=== PATIENT | male | born 1955 | race Caucasian/White ===

== ENCOUNTER → 2016-02-13 | Outpatient (CLI) | payer BC ==
[~2016-02-13] MED LIST: CHOL2000 PO; LACT1CAP49 PO; LOPE2CAP PO; LORA1TAB54 PO; NAPR220C2 PO
[2016-02-13 11:55] LABS: BASOPHILS % 0.2 % (0.0-2.0); EOSINOPHILS # 0.3 10^3/ul (0.0-0.5); EOSINOPHILS % 3.7 % (0.0-7.0); HEMATOCRIT 47.5 % (42.0-52.0); HEMOGLOBIN 16.1 g/dl (14.0-18.0); LYMPHOCYTES % 10.7 % (15.0-51.0); MEAN CORPUSCULAR HEMOGLOBIN 31.7 pg (29.0-33.0); MEAN CORPUSCULAR HGB CONC 33.9 g/dl (32.0-37.0); MEAN CORPUSCULAR VOLUME 93.5 fl (82.0-101.0); MEAN PLATELET VOLUME 9.7 fl (7.4-10.4); MONOCYTE # 0.7 10^3/ul (0.3-0.9); MONOCYTES % 7.3 % (0.0-11.0); NEUTROPHIL # 7.2 10^3/ul (1.6-7.5); NEUTROPHILS % 78.1 % (39.0-77.0); PLATELET COUNT 111 10^3/UL (140-440); RED BLOOD COUNT 5.08 10^6/ul (4.70-6.10); RED CELL DISTRIBUTION WIDTH 14.2 % (11.5-14.5); UNCORRECTED WBC 9.2 10^3/ul (4.8-10.8); WHITE BLOOD COUNT 9.2 10^3/ul (4.8-10.8)
[2016-02-13 12:04] LABS: CONDITION 1
[2016-02-13 12:22] LABS: POTASSIUM 4.4 mmol/L (3.5-5.1)
[2016-02-13 12:25] LABS: ALBUMIN/GLOBULIN RATIO 1.53; BILIRUBIN,INDIRECT 0.9 mg/dl (0-1.1); BILIRUBIN,TOTAL 0.9 mg/dl (0.2-1.3); CREATININE 0.96 mg/dl (0.61-1.24); TOTAL PROTEIN 6.6 g/dl (6.1-8.1)
[2016-02-13 12:26] LABS: CALCIUM 8.8 mg/dl (8.4-10.2)
== END | disposition home or self-care (01) ==
LOC: OBT 11:22
PROVIDERS: ATTEND Specialist
DX: M06.9 Rheumatoid arthritis, unspecified (principal)
CPT/HCPCS: 80053; 85025; 85651; 86140

== ENCOUNTER 2016-03-11 06:30 | Day surgery (SDC) | payer BC ==
[~2016-03-11] VITALS: Ht 160 cm; Wt 68.9 kg
[2016-03-11 08:30] VITALS: Ht 160 cm; Wt 68.9 kg
[2016-03-11] MEDS ORDERED: ACTEMRA (08:36)
[2016-03-11 08:47] VITALS: BP 143/82; PULSE 74; RESP 18
[2016-03-11] MEDS ORDERED: PROPOFOL 20 ML ONE (08:59)
[2016-03-11 09:35] VITALS: BP 122/72; PULSE 54; RESP 21
--- NOTE | 2016-03-11 13:43 | GILP ---
DATE OF PROCEDURE: PROCEDURE PERFORMED: Colonoscopy with biopsy. INDICATION: A 61-year-old male undergoing this procedure for chronic diarrhea and colon cancer scre ening. The risks of the procedure, related and unrelated complications, anesthetic risks, alternati ves discussed. Informed consent was obtained. DESCRIPTION OF PROCEDURE: The patient was brought to the GI lab, sedated by Dr. Wylie. After obtaini ng sedation, digital examination done. Sphincter tone was poor. No mass was felt and the prostate was normal. Scope was passed with much ease into rectum, advanced through clean colon all the way i nto cecum and finally into terminal ileum. IC valve was a bit tight. Managed to pass all the way up to 3 feet, the rest of the terminal ileum was normal. Random biopsies obtained from the right colo n, transverse colon and left colon. Retroversion could not be done because of a poor sphincter tone and it was not holding any air. Scope was removed with good patient tolerance. IMPRESSION 1. Slightly poor sphincter tone. 2. Normal colon all the way up to the appendix. 3. Normal terminal ileum up to 3 feet. 4. Clarity and cleanliness was good. 5. Digital examination was normal except for a post-sphincter tone. PLAN: Review histopathology for collagenous or microscopic colitis. Patient will be placed on a bu lky diet for his diarrhea. If that does not work then will work him up further. Dictated By: JOE CHARLES/SADIE Conf#: [id number] DID#: [id number]
== END 2016-03-11 09:45 | disposition home or self-care (01) ==
LOC: GIL 06:30
PROVIDERS: ATTEND Internal Medicine Gastroenterology
DX: Z12.11 Encounter for screening for malignant neoplasm of colon (principal); M06.9 Rheumatoid arthritis, unspecified; R19.7 Diarrhea, unspecified; R00.1 Bradycardia, unspecified

== ENCOUNTER → 2016-04-16 | Outpatient (CLI) | payer BC ==
[~2016-04-16] MED LIST changes: +ACTEMRA
[2016-04-16 08:22] LABS: ADD SCAN DIFF NO
[2016-04-16 08:37] LABS: ALBUMIN 3.7 g/dl (3.3-4.9)
[2016-04-16 08:38] LABS: POTASSIUM 4.4 mmol/L (3.5-5.1)
[2016-04-16 08:40] LABS: ALBUMIN/GLOBULIN RATIO 1.42; BILIRUBIN,INDIRECT 0.3 mg/dl (0-1.1); BILIRUBIN,TOTAL 0.3 mg/dl (0.2-1.3); CREATININE 0.98 mg/dl (0.61-1.24); TOTAL PROTEIN 6.3 g/dl (6.1-8.1)
[2016-04-16 08:41] LABS: CALCIUM 8.9 mg/dl (8.4-10.2)
[2016-04-16 08:43] LABS: C-REACTIVE PROTEIN 0.6 mg/dl (0.0-0.9)
[2016-04-16 09:43] LABS: BASOPHILS % 0.6 % (0.0-2.0); EOSINOPHILS # 0.2 10^3/ul (0.0-0.5); EOSINOPHILS % 4.4 % (0.0-7.0); HEMOGLOBIN 15.2 g/dl (14.0-18.0); LYMPHOCYTES # 1.3 10^3/ul (0.8-2.9); LYMPHOCYTES % 26.5 % (15.0-51.0); MEAN CORPUSCULAR HEMOGLOBIN 31.3 pg (29.0-33.0); MEAN CORPUSCULAR VOLUME 94.8 fl (82.0-101.0); MEAN PLATELET VOLUME 12.2 fl (7.4-10.4); MONOCYTE # 0.5 10^3/ul (0.3-0.9); MONOCYTES % 10.2 % (0.0-11.0); NEUTROPHIL # 2.9 10^3/ul (1.6-7.5); NEUTROPHILS % 57.9 % (39.0-77.0); PLATELET COUNT 140 10^3/UL (140-415); RED BLOOD COUNT 4.85 10^6/ul (4.70-6.10); RED CELL DISTRIBUTION WIDTH 13.2 % (11.5-14.5)
== END | disposition home or self-care (01) ==
LOC: LAB 07:53
PROVIDERS: ATTEND Specialist
DX: M06.9 Rheumatoid arthritis, unspecified (principal)
CPT/HCPCS: 80053; 85025; 85651; 86140

== ENCOUNTER → 2016-04-22 | Outpatient (CLI) | payer BC | END | disposition home or self-care (01) | LOC: LAB 09:51 | PROVIDERS: ATTEND Internal Medicine Gastroenterology | DX: R19.7 Diarrhea, unspecified (principal) | CPT/HCPCS: 87177; 87205 ==

== ENCOUNTER → 2016-05-02 | Outpatient (CLI) | payer BC ==
[2016-05-02 19:32] LABS: ADD SCAN DIFF NO
[2016-05-02 19:38] LABS: BASOPHILS % 0.8 % (0.0-2.0); EOSINOPHILS # 0.2 10^3/ul (0.0-0.5); EOSINOPHILS % 4.1 % (0.0-7.0); HEMATOCRIT 47.3 % (42.0-52.0); HEMOGLOBIN 16.1 g/dl (14.0-18.0); LYMPHOCYTES # 1.4 10^3/ul (0.8-2.9); LYMPHOCYTES % 28.9 % (15.0-51.0); MEAN CORPUSCULAR HEMOGLOBIN 31.4 pg (29.0-33.0); MEAN CORPUSCULAR VOLUME 92.2 fl (82.0-101.0); MEAN PLATELET VOLUME 11.8 fl (7.4-10.4); MONOCYTE # 0.5 10^3/ul (0.3-0.9); MONOCYTES % 9.7 % (0.0-11.0); NEUTROPHIL # 2.7 10^3/ul (1.6-7.5); NEUTROPHILS % 56.3 % (39.0-77.0); PLATELET COUNT 146 10^3/UL (140-415); RED BLOOD COUNT 5.13 10^6/ul (4.70-6.10); RED CELL DISTRIBUTION WIDTH 13.1 % (11.5-14.5); WHITE BLOOD COUNT 4.8 10^3/ul (4.8-10.8)
[2016-05-02 19:46] LABS: ALBUMIN 4.2 g/dl (3.3-4.9); POTASSIUM 4.5 mmol/L (3.5-5.1)
[2016-05-02 19:48] LABS: CREATININE 1.11 mg/dl (0.61-1.24)
[2016-05-02 19:49] LABS: ALBUMIN/GLOBULIN RATIO 1.55; BILIRUBIN,INDIRECT 0.3 mg/dl (0-1.1); BILIRUBIN,TOTAL 0.3 mg/dl (0.2-1.3); TOTAL PROTEIN 6.9 g/dl (6.1-8.1)
[2016-05-02 19:50] LABS: CALCIUM 9.7 mg/dl (8.4-10.2)
[2016-05-02 19:52] LABS: C-REACTIVE PROTEIN 0.7 mg/dl (0.0-0.9)
== END | disposition home or self-care (01) ==
LOC: LAB 13:55
PROVIDERS: ATTEND Specialist
DX: M06.9 Rheumatoid arthritis, unspecified (principal)
CPT/HCPCS: 80053; 85025; 85651; 86140

== ENCOUNTER 2016-06-13 11:11 | Emergency (ER) | payer BC ==
[~2016-06-13] VITALS: Wt 71.0 kg
[2016-06-13] MEDS ORDERED: PRED20TA PO (11:39)
[2016-06-13] MEDS ORDERED: HC30CR25 TOP (11:39)
[2016-06-13] MEDS ORDERED: CEPH-443 PO (11:40)
--- NOTE | 2016-06-13 11:44 | ERD ---
ER Documentation Chief Complaint Date/Time DATE: 06/13/16 TIME: 11:42 Chief Complaint RASH TO RIGHT SIDE OF NECK FOR THE PAST FEW DAYS . NO BLEEDING OR DRAINAGE HPI This 61-year-old male presents with a rash on the right side of his neck and crouch area for last 3 days. He has been using Neosporin but he has stopped recently as he suspects he may be has allergic reaction. He has been treated for similar rash with antibiotics in the past but rather not take antibiotics if it is an allergic reaction or some other type of rash. He denies fevers, vomiting, shortness of breath or chest pain. Denies any history of trauma, lacerations, pimples or other inciting lesions. Patient has a history of rheumatoid arthritis and is treated with biologic agents. ROS All systems reviewed and are negative except as per history of present illness. Medications Home Meds Active Scripts Cephalexin* (Keflex*) 500 Mg Capsule, 500 MG PO QID for 7 Days, CAP Prov:FREDA UREÑA MD 06/13/16 Hydrocortisone* Topical (Hydrocortisone* Topical) 2.5%-28.3 Gm Cream..g., 1 APPLIC TOP TID for 7 Days, #1 TUB Prov:FREDA UREÑA MD 06/13/16 Prednisone* (Prednisone*) 20 Mg Tab, 40 MG PO DAILY for 4 Days, TAB Prov:FREDA UREÑA MD 06/13/16 Reported Medications [Actemra] No Conflict Check 03/11/16 Lactobacillus Combination No.4 (Probiotic) 1 Each Capsule, 1 CAP PO DAILY, CAP 01/19/15 Cholecalciferol* (Vitamin D3*) 2,000 Unit Cap, 5000 UNIT PO DAILY, CAP 01/19/15 Naproxen* (Aleve*) 220 Mg Capsule, 220 MG PO BID Y for PAIN, #60 CAP 01/19/15 Loperamide Hcl* (Imodium*) 2 Mg Capsule, 2 MG PO Q6H Y for DIARRHEA, CAP MAX 16 mg/day 01/19/15 Loratadine/Pseudoephedrine* (Claritin-D* 12 Hr) 5-120 Mg Tab.er.12h, 1 TAB PO Q12 Y for ALLERGIC REACTION, #60 TAB.SA 01/19/15 Allergies Allergies: Coded Allergies: Sulfa (Sulfonamide Antibiotics) (Unverified Allergy, Unknown, 01/19/15) unknown reaction. childhood allergy levofloxacin (Unverified Allergy, Unknown, numbness of fingertips for several weeks, 01/19/15) PMhx/Soc History of Surgery: Yes (BILAT INGUINAL/UMBILICAL HERNIA REPAIR 01/23) Anesthesia Reaction: No Hx Neurological Disorder: No Hx Respiratory Disorders: No Hx Cardiac Disorders: Yes (RBBB) Hx Psychiatric Problems: No Hx Miscellaneous Medical Probl: Yes (RHEUMATOID ARTHRITIS) Hx Alcohol Use: No Hx Substance Use: No Hx Tobacco Use: No Smoking Status: Never smoker Physical Exam Vitals Vital Signs Date Time Temp Pulse Resp B/P Pulse Ox O2 Delivery O2 Flow Rate FiO2 06/13/16 11:13 97.5 60 20 150/86 97 Physical Exam Const: [] Alert, [id number] per Head: Atraumatic Eyes: Normal Conjunctiva ENT: Normal External Ears, Nose and Mouth. Neck: Full range of motion..~ No meningismus. Resp: Clear to auscultation bilaterally Cardio: Regular rate and rhythm, no murmurs Abd: Soft, non tender, non distended. Normal bowel sounds Skin: No petechiae or purpura. There is a erythematous maculopapular rash on the right crouch area. There is no warmth, induration, streaking or discharge. Back: No midline or flank tenderness Ext: No cyanosis, or edema Neur: Awake and alert Psych: Normal Mood and Affect Procedures/MDM Patient presents with a rash on the right cheek or crouch area. He has a clinical appearance of some type of contact dermatitis. Patient will be treated with a short course prednisone and hydrocortisone and avoidance of any Neosporin. Patient was given Keflex as well but is advised to hold for 24-48 hours and take only for worsening redness, warmth, fevers. Patient agrees with the plan. The patient was stable with no new complaints during the ER course. Clinically, there is no current evidence to suggest meningitis, sepsis, acute abdomen, pneumonia, acute coronary syndrome, pulmonary embolism, or any other emergent condition appearing to require further evaluation or hospitalization. The patient should certainly return for any new or worsening symptoms per the aftercare instructions. They should otherwise follow-up with her primary care doctor for reevaluation this week. Departure Diagnosis: Primary Impression: Rash Condition: Stable Patient Instructions: Dermatitis, Non-Specific Additional Instructions: Appears to be contact dermatitis and we will treat for this for 2 days. Okay to hold antibiotics for 48 hours. Recommend treatment for infection of fevers, worsening redness. FREDA UREÑA MD June 13, 2016 11:44
== END 2016-06-13 11:53 | disposition home or self-care (01) ==
LOC: FTE 11:11
DX: R21 Rash and other nonspecific skin eruption (principal)
CPT/HCPCS: 99284

== ENCOUNTER → 2016-06-14 | Outpatient (CLI) | payer BC ==
[~2016-06-14] MED LIST changes: +CEPH-443 PO; +HC30CR25 TOP; +PRED20TA PO
[2016-06-14 17:35] LABS: ADD SCAN DIFF NO
[2016-06-14 17:52] LABS: ALBUMIN 4.4 g/dl (3.3-4.9); POTASSIUM 4.6 mmol/L (3.5-5.1)
[2016-06-14 17:54] LABS: CREATININE 1.04 mg/dl (0.61-1.24)
[2016-06-14 17:55] LABS: ALBUMIN/GLOBULIN RATIO 1.57; BILIRUBIN,INDIRECT 0.5 mg/dl (0-1.1); BILIRUBIN,TOTAL 0.5 mg/dl (0.2-1.3); TOTAL PROTEIN 7.2 g/dl (6.1-8.1)
[2016-06-14 17:56] LABS: CALCIUM 8.9 mg/dl (8.4-10.2)
[2016-06-14 17:58] LABS: C-REACTIVE PROTEIN 0.5 mg/dl (0.0-0.9)
[2016-06-14 17:59] LABS: ABNORMAL IP MESSAGE 1; HEMOGLOBIN 16.4 g/dl (14.0-18.0); MEAN CORPUSCULAR HEMOGLOBIN 31.1 pg (29.0-33.0); MEAN CORPUSCULAR HGB CONC 34.2 g/dl (32.0-37.0); MEAN CORPUSCULAR VOLUME 90.9 fl (82.0-101.0); MEAN PLATELET VOLUME 11.9 fl (7.4-10.4); PLATELET COUNT 137 10^3/UL (140-415); RED BLOOD COUNT 5.28 10^6/ul (4.70-6.10); RED CELL DISTRIBUTION WIDTH 13.9 % (11.5-14.5)
[2016-06-14 19:41] LABS: LYMPHOCYTES # 0.5 10^3/ul (0.8-2.9); MONOCYTE # 0.5 10^3/ul (0.3-0.9)
== END | disposition home or self-care (01) ==
LOC: LAB 12:34
PROVIDERS: ATTEND Specialist
DX: M06.9 Rheumatoid arthritis, unspecified (principal)
CPT/HCPCS: 80053; 85025; 85651; 86140

== ENCOUNTER → 2016-08-16 | Outpatient (CLI) | payer BC ==
[2016-08-16 08:13] LABS: ADD SCAN DIFF NO
[2016-08-16 08:27] LABS: HEMATOCRIT 46.7 % (42.0-52.0); HEMOGLOBIN 15.8 g/dl (14.0-18.0); MEAN CORPUSCULAR HEMOGLOBIN 31.3 pg (29.0-33.0); MEAN CORPUSCULAR HGB CONC 33.8 g/dl (32.0-37.0); MEAN CORPUSCULAR VOLUME 92.5 fl (82.0-101.0); MEAN PLATELET VOLUME 11.5 fl (7.4-10.4); RED BLOOD COUNT 5.05 10^6/ul (4.70-6.10); RED CELL DISTRIBUTION WIDTH 14.4 % (11.5-14.5); WHITE BLOOD COUNT 4.2 10^3/ul (4.8-10.8)
[2016-08-16 08:46] LABS: ALBUMIN 4.7 g/dl (3.3-4.9); ALBUMIN/GLOBULIN RATIO 2.35; BILIRUBIN,INDIRECT 0.6 mg/dl (0-1.1); BILIRUBIN,TOTAL 0.6 mg/dl (0.2-1.3); C-REACTIVE PROTEIN 0.5 mg/dl (0.0-0.9); CALCIUM 8.9 mg/dl (8.4-10.2); CREATININE 1.13 mg/dl (0.61-1.24); POTASSIUM 4.2 mmol/L (3.5-5.1); TOTAL PROTEIN 6.7 g/dl (6.1-8.1)
[2016-08-16 10:15] LABS: EOSINOPHILS # 0.2 10^3/ul (0.0-0.5); MONOCYTE # 0.4 10^3/ul (0.3-0.9); NEUTROPHIL # 2.1 10^3/ul (1.6-7.5)
[2016-08-16 10:27] LABS: PLATELET COUNT 114 10^3/UL (140-415)
== END | disposition home or self-care (01) ==
LOC: LAB 07:55
PROVIDERS: ATTEND Specialist
DX: M06.9 Rheumatoid arthritis, unspecified (principal)
CPT/HCPCS: 80053; 85025; 85651; 86140